=== PATIENT | male | born 2000 | race Two or more races ===

== ENCOUNTER 2020-11-11 19:30 | Emergency (ER) | payer SELFPAY ==
[~2020-11-11] VITALS: Ht 177.8 cm; Wt 77.3 kg
[2020-11-11 21:47] VITALS: BP 123/65
== END 2020-11-11 21:54 | disposition home or self-care (01) ==
LOC: EMS 19:33
DX: K12.2 Cellulitis and abscess of mouth (principal); F17.210 Nicotine dependence, cigarettes, uncomplicated; F12.90 Cannabis use, unspecified, uncomplicated
CPT/HCPCS: 99281; Z7502